=== PATIENT | male | born 1995 | race Two or more races ===

== ENCOUNTER 2017-01-27 08:25 | Emergency (ER) | payer OTHER ==
[~2017-01-27] VITALS: Ht 165.1 cm; Wt 70.8 kg
[2017-01-27 09:14] VITALS: BP 130/82
== END 2017-01-27 10:01 | disposition home or self-care (01) ==
LOC: ER 08:25
DX: L03.211 Cellulitis of face (principal); F12.10 Cannabis abuse, uncomplicated; F17.210 Nicotine dependence, cigarettes, uncomplicated

== ENCOUNTER 2022-07-19 20:10 | Emergency (ER) | payer SELFPAY ==
[~2022-07-19] VITALS: Ht 165.1 cm; Wt 93.0 kg
[2022-07-20] MEDS ORDERED: IBUP800T26 PO (07:55)
[2022-07-20 08:03] VITALS: BP 130/81
== END 2022-07-20 08:09 | disposition home or self-care (01) ==
LOC: ER 20:10
DX: S93.402A Sprain of unspecified ligament of left ankle, initial encounter (principal); X37.1XXA Tornado, initial encounter; Y93.51 Activity, roller skating (inline) and skateboarding; Y92.89 Other specified places as the place of occurrence of the external cause; Y99.8 Other external cause status
CPT/HCPCS: 73600